=== PATIENT | female | born 1990 | race African-American/Black ===

== ENCOUNTER 2017-12-16 15:26 | Day surgery (SDC) | payer OTHER ==
--- NOTE | 2017-12-16 15:42 | PDOC ---
Rapid Medical Evaluation Time Seen by Provider: 12/16/17 15:36 Medical Evaluation: 12/16/17 15:37 Passed out yesterday on her way home while walking. Does not remember passing out. Does not thinks she hit her head. Also with RLQ pain for one week. Just came from PCP. Exam: ambulatory, no acute distress, TTP RLQ. Abd otherwise soft non distended with no guarding or rebound Orders: labs, Iv insert Pt. to be evaluated in the back.
--- NOTE | 2017-12-16 16:12 | PDOC ---
History of Present Illness - General Chief Complaint: Syncope/Near Syncope Stated Complaint: EMPLOYEE, SYNCOPE, ABD PAIN Time Seen by Provider: 12/16/17 15:36 History Source: Patient Exam Limitations: No Limitations - History of Present Illness Initial Comments: 12/16/17 16:14 Best Contact: PCP: Dr. Walls Pmhx:N/A Pshx:N/A Allergies: NKDA FH: Father/49 years old: Hypertension, mother/56 years old: Healthy Maternal grandmother/66 years old: Cervical and ovarian CA Paternal grandmother/ unknown age: Cervical cancer Social Hx: Ciarettes/ Alcohol/ Drugs/ LMP:11/25/2017 27-year-old female presents to the emergency department stating at approximately midnight last evening, she was walking home when she had a near syncopal episode. Patient states it only occur for a couple of seconds but woke up without confusion. Patient denies headache, dizziness, lightheadedness, facial pains, rhinorrhea, nasal congestion, earaches, neck pain/stiffness, back pains, chest pain, shortness of breath, flank pains, urinary symptoms. Patient is also complaining of right lower quadrant abdominal 2/10 dull nonradiating intermittent discomfort without nausea/vomiting, fever/chills, flank pains or urinary symptoms x 7-8 days. Patient was seen by her PMD approximately one hour prior to coming to the emergency department. Patient was sent to the ER by her PMD to rule out appendicitis. Patient's PMD attributes near syncope last evening from dehydration. Patient states she has not drank any fluids or had much to eat yesterday. Pt last ate at 12 midnight last evening Past History - Past Medical History Allergies/Adverse Reactions: Allergies Allergy/AdvReac Type Severity Reaction Status Date / Time No Known Allergies Allergy Verified 12/16/17 15:37 Home Medications: Ambulatory Orders NK [No Known Home Medication] 12/16/17 COPD: No - Suicide/Smoking/Psychosocial Hx Smoking History: Never smoked Have you smoked in the past 12 months: No Information on smoking cessation initiated: No Hx Alcohol Use: No Drug/Substance Use Hx: No Substance Use Type: None Review of Systems - Review of Systems Able to Perform ROS?: Yes Comments:: 12/16/17 16:16 CONSTITUTIONAL: Absent: fever, chills, diaphoresis, generalized weakness, malaise, loss of appetite HEENT: Absent: rhinorrhea, nasal congestion, throat pain, throat swelling, difficulty swallowing, mouth swelling, ear pain, eye pain, visual Changes CARDIOVASCULAR: Absent: chest pain, loss of consciousness, palpitations, irregular heart rate, peripheral edema RESPIRATORY: Absent: cough, shortness of breath, dyspnea with exertion, orthopnea, wheezing, stridor, hemoptysis GASTROINTESTINAL: +RLQ pain Absent: abdominal distension, nausea, vomiting, diarrhea, constipation, melena, hematochezia GENITOURINARY: Absent: dysuria, frequency, urgency, hesitancy, hematuria, flank pain, genital pain MUSCULOSKELETAL: Absent: myalgia, arthralgia, joint swelling SKIN: Absent: rash, itching, pallor HEMATOLOGIC/IMMUNOLOGIC: Absent: easy bleeding, easy bruising, lymphadenopathy, frequent infections ENDOCRINE: Absent: unexplained weight gain, unexplained weight loss, heat intolerance, cold intolerance NEUROLOGIC: +Near syncope last evening Absent: headache, focal weakness or paresthesias, dizziness, unsteady gait, seizure, mental status changes, bladder or bowel incontinence PSYCHIATRIC: Absent: anxiety, depression, suicidal or homicidal ideation, hallucinations. Is the patient limited Mexican proficient: No *Physical Exam - Vital Signs Last Vital Signs Temp Pulse Resp BP Pulse Ox 98.2 F 85 18 118/97 100 12/16/17 15:38 12/16/17 15:38 12/16/17 15:38 12/16/17 15:38 12/16/17 15:38 - Physical Exam Comments: 12/16/17 16:20 GENERAL: Well developed, well nourished. Awake and alert. No acute distress. HEENT: Normocephalic, atraumatic. PERRLA, EOMI. No conjunctival pallor. Sclera are non- icteric. Moist mucous membranes. Oropharynx is clear. NECK: Supple. Full ROM. No JVD. Carotid pulses 2+ and symmetric, without bruits. No thyromegaly. No lymphadenopathy. CARDIOVASCULAR: Regular rate and rhythm. No murmurs, rubs, or gallops. Distal pulses are 2+ and symmetric. PULMONARY: No evidence of respiratory distress. Lungs clear to auscultation bilaterally. No wheezing, rales or rhonchi. ABDOMINAL: +RLQ pain on deep palp Soft. Non-distended. No rebound or guarding. No organomegaly. Normoactive bowel sounds. MUSCULOSKELETAL Normal range of motion at all joints. No bony deformities or tenderness. No CVA tenderness. EXTREMITIES: No cyanosis. No clubbing. No edema. No calf tenderness. SKIN: Warm and dry. Normal capillary refill. No rashes. No jaundice. NEUROLOGICAL: Alert, awake, appropriate. Cranial nerves 2-12 intact. No deficits to light touch and temperature in face, upper extremities and lower extremities. No motor deficits in the in face, upper extremities and lower extremities. Normoreflexic in the upper and lower extremities. Normal speech. Toes are down- going bilaterally. Gait is normal without ataxia. PSYCHIATRIC: Cooperative. Good eye contact. Appropriate mood and affect. Moderate Sedation - Procedure Monitoring Vital Signs: Vital Signs Temp Pulse Resp BP Pulse Ox 98.2 F 85 18 118/97 100 12/16/17 15:38 12/16/17 15:38 12/16/17 15:38 12/16/17 15:38 12/16/17 15:38 Heart Score/ECG Review - History History: Slightly suspicious - Electrocardiogram EKG: Normal - Age Age: >/= 65 - Risk Factors Based on the list above the patient has:: No risk factors known ED Treatment Course - LABORATORY CBC & Chemistry Diagram: 12/16/17 16:03 12/16/17 16:03 - RADIOLOGY Radiograph Interpretation: 12/16/17 16:20 CT abd/pelvis with po/iv contrast: The appendix demonstrates slight concentric wall thickening along its length which could be on the basis of chronic or subacute appendicitis. *DC/Admit/Observation/Transfer Diagnosis at time of Disposition: Appendicitis Qualifiers: Appendicitis type: unspecified Qualified Code(s): K37 - Unspecified appendicitis - Discharge Dispostion Condition at time of disposition: Stable Decision to Admit order: Yes - Referrals Referrals: Awilda Alegria MD [Primary Care Provider] - Aleksander Carr MD [Staff Physician] - - Patient Instructions Printed Discharge Instructions: DI for Appendicitis -- Adult - Post Discharge Activity Progress Note - Progress Note Progress Note: 1952hrs: Called [facility]/surgery elevator constructor supervisor (Dr. Carr [phone])
[2017-12-16 16:16] VITALS: BMI 31.2
[2017-12-16 16:36] LABS: BASO % 0.3 % (0-2.0); EOS % 1.9 % (0-4.5); HEMATOCRIT 38.8 % (32.4-45.2); HEMOGLOBIN 12.6 GM/dL (10.7-15.3); LYMPH % 30.2 % (8-40); MCH 26.8 pg (25.7-33.7); MCHC 32.3 g/dl (32.0-36.0); MEAN PLT VOLUME 8.6 fl (7.5-11.1); NEUT % 58.6 % (42.8-82.8); PLATELET COUNT 296 K/MM3 (134-434); RBC 4.68 M/mm3 (3.60-5.2); RDW 14.3 % (11.6-15.6); WHITE BLOOD COUNT 8.4 K/mm3 (4.0-10.0)
[2017-12-16 16:45] LABS: INR 1.16 (0.82-1.09); PROTHROMBIN TIME (PATIENT) 13.1 SEC (9.7-13.0)
[2017-12-16 16:56] LABS: ALBUMIN 3.9 g/dl (3.4-5.0); ALK PHOS 46 U/L (45-117); ANION GAP 7 (8-16); BILIRUBIN,TOTAL 0.3 mg/dL (0.2-1.0); BLOOD UREA NITROGEN 13 mg/dL (7-18); CALCIUM 8.8 mg/dL (8.5-10.1); CHLORIDE 105 mmol/L (98-107); CO2 28 mmol/L (21-32); CREATININE 0.9 mg/dL (0.55-1.02); GLUCOSE,RANDOM 91 mg/dL (74-106); POTASSIUM 4.1 mmol/L (3.5-5.1); SGOT/AST 22 U/L (15-37); SGPT/ALT 22 U/L (12-78); SODIUM 140 mmol/L (136-145); TOT PROT 7.7 g/dl (6.4-8.2)
[2017-12-16 16:57] LABS: URINE APPEARANCE CLOUDY; URINE BILIRUBIN NEGATIVE (<2.0 mg/dL); URINE BLOOD NEGATIVE (NEGATIVE); URINE COLOR YELLOW; URINE GLUCOSE (UA) NEGATIVE (NEGATIVE); URINE KETONE NEGATIVE (NEGATIVE); URINE NITRITE NEGATIVE (NEGATIVE); URINE PROTEIN NEGATIVE (NEGATIVE); URINE UROBILINOGEN NEGATIVE mg/dL (0.2-1.0)
[2017-12-16 17:02] LABS: HCG,QUALITATIVE URINE NEGATIVE
[2017-12-16 17:07] LABS: URINE LEUK ESTERASE 3+ (NEGATIVE)
[2017-12-16 17:10] LABS: EPI CELLS MODERATE /HPF (FEW); URINE MUCUS RARE
--- NOTE | 2017-12-16 21:15 | CONSULT ---
Consult Consult Specialty:: general surgery - Alcohol/Substance Use Hx Alcohol Use: No - Smoking History Smoking history: Never smoked Have you smoked in the past 12 months: No Home Medications - Allergies Allergies/Adverse Reactions: Allergies Allergy/AdvReac Type Severity Reaction Status Date / Time No Known Allergies Allergy Verified 12/16/17 15:37 - Home Medications Home Medications: Ambulatory Orders NK [No Known Home Medication] 12/16/17 Physical Exam Vital Signs: Vital Signs Temperature 98.2 F 12/16/17 15:38 Pulse Rate 85 12/16/17 15:38 Respiratory Rate 18 12/16/17 15:38 Blood Pressure 118/97 12/16/17 15:38 O2 Sat by Pulse Oximetry (%) 100 12/16/17 15:38 Labs: CBC, BMP 12/16/17 16:03 12/16/17 16:03
--- NOTE | 2017-12-16 22:35 | HP ---
Admitting History and Physical - Admission Chief Complaint: Abdominal Pain History of Present Illness: 27yo female no signifcant PMH sent from PMD to the emergency department stating at approximately midnight last evening, she was walking home when she had a near syncopal episode. Patient states it only occur for a couple of seconds but woke up without confusion. She also reported right lower quadrant abdominal 2/10 dull nonradiating intermittent discomfort without nausea/vomiting , fever/chills, flank pains or urinary symptoms one month worse over last week. Patient was seen by her PMD approximately one hour prior to coming to the emergency department. Patient was sent to the ER by her PMD to rule out appendicitis. NO previous abdominal surgery. Patient denies headache, dizziness , lightheadedness, facial pains, rhinorrhea, nasal congestion, earaches, neck pain/stiffness, back pains, chest pain, shortness of breath, flank pains, urinary symptoms. We were asked to assess. History Source: Patient, Medical Record Limitations to Obtaining History: No Limitations - Smoking History Smoking history: Never smoked Have you smoked in the past 12 months: No - Alcohol/Substance Use Hx Alcohol Use: No History of Substance Use: reports: None - Social History History of Recent Travel: No Home Medications - Allergies Allergies/Adverse Reactions: Allergies Allergy/AdvReac Type Severity Reaction Status Date / Time No Known Allergies Allergy Verified 12/16/17 15:37 - Home Medications Home Medications: Ambulatory Orders NK [No Known Home Medication] 12/16/17 Review of Systems - Review of Systems Constitutional: denies: Chills, Fever Eyes: denies: Blurred Vision, Recent Change in Vision HENT: denies: Difficult Swallowing, Throat Pain Neck: denies: Decreased ROM, Pain on Movement Cardiovascular: denies: Chest Pain, Palpitations Respiratory: denies: Cough, Snoring, SOB Gastrointestinal: reports: Abdominal Pain. denies: Constipation, Diarrhea Genitourinary: denies: Burning, Discharge Musculoskeletal: denies: Back Pain, Muscle Pain, Muscle Weakness Integumentary: denies: Lesions, Rash, Wound Neurological: denies: Confusion, Dizziness, Syncope, Tremors Endocrine: denies: Unexplained Weight Gain, Unexplained Weight Loss Hematology/Lymphatic: denies: Easily Bruised, Excessive Bleeding Psychiatric: denies: Altered Sleep Pattern, Anxiety, Depression Physical Examination Vital Signs: Vital Signs Temperature 98.2 F 05/22/18 15:38 Pulse Rate 85 12/16/17 15:38 Respiratory Rate 18 12/16/17 15:38 Blood Pressure 118/97 12/16/17 15:38 O2 Sat by Pulse Oximetry (%) 100 12/16/17 15:38 Vital Signs Period Temp Pulse Resp BP Sys/Sinclair Pulse Ox Last 24 Hr 98.2 F 85 18 118/97 100 Constitutional: Yes: Well Nourished, No Distress, Calm Eyes: Yes: Conjunctiva Clear, EOM Intact HENT: Yes: Atraumatic, Normocephalic Neck: Yes: Supple, Trachea Midline Cardiovascular: Yes: Regular Rate and Rhythm, S1, S2 Respiratory: Yes: Regular, CTA Bilaterally. No: Cough Gastrointestinal: Yes: Normal Bowel Sounds, Soft, Tenderness, Tenderness, Rebound (RLQ moderate). No: Distention, Hematemesis, Pulsatile Mass, Rectal Bleeding ...Rectal Exam: Yes: Sphincter Tone Normal. No: Hemorrhoids/External, Hemorrhoids/Internal, Mass Renal/: No: CVA Tenderness - Left, CVA Tenderness - Right Extremities: No: Cool, Cyanosis Edema: No Peripheral Pulses WNL: Yes Peripheral Pulses: Left Doralis Pedis: 2+, Right Dorsalis Pedis: 2+ Integumentary: No: Jaundice, Rash Neurological: Yes: Alert, Oriented Psychiatric: Yes: Alert, Oriented Labs: CBC, BMP 12/16/17 16:03 12/16/17 16:03 Imaging - Results Cat Scan: Report Reviewed, Image Reviewed (Concentric wall thickening, chronic appendictis) Problem List - Problems (1) Appendicitis Assessment/Plan: 27 yo female PMH no leucocytosis, tender with moderate rebound in RLQ (persited overnight, after analgesia and antibiotics), no fever, would consider this chronic appendicitis NPO and IVF hydration IV antibiotics Reviewed films with Radaiologist Discussed with patient risks, benefits and alternatives of laparoscopic possible open appendectomy, including but not limited to bleeding, infection, injury to adjacent structures, leak or injury, intraabdominal abscess, need for further procedures, ; alternatives include antibiotics, delayed or no surgery - risks of this include failure of nonoperative therapy, perforation, sepsis, recurrence, . Patient desires to proceed with operation - will take to OR for above. Informed consent signed for same. Code(s): K37 - UNSPECIFIED APPENDICITIS Qualifiers: Appendicitis type: unspecified Qualified Code(s): K37 - Unspecified appendicitis (2) Dehydration Code(s): E86.0 - DEHYDRATION (3) Syncope, near Code(s): R55 - SYNCOPE AND COLLAPSE (4) Abdominal pain in female patient Code(s): R10.9 - UNSPECIFIED ABDOMINAL PAIN
[2017-12-16] MEDS ORDERED: ONDANSETRON 4 MG/2 ML VIAL IVPUSH PRN (22:36)
[2017-12-16] MEDS ORDERED: morphine SULFATE 4 MG/ML VIAL IVPUSH PRN (22:36)
[2017-12-16] MEDS ORDERED: CEFOXITIN SODIUM 2 GM in DEXTROSE 5%-WATER - 100 ML IVPB ONE (22:58)
[2017-12-16] MEDS: LACTATED RINGERS SOLUTION 1,000 ML IV SCH (23:49)
[2017-12-17 06:40] LABS: HEMATOCRIT 36.5 % (32.4-45.2); HEMOGLOBIN 12.1 GM/dL (10.7-15.3); MCH 27.3 pg (25.7-33.7); MCHC 33.1 g/dl (32.0-36.0); MEAN CELL VOLUME 82.4 fl (80-96); MEAN PLT VOLUME 8.3 fl (7.5-11.1); PLATELET COUNT 262 K/MM3 (134-434); RBC 4.43 M/mm3 (3.60-5.2); WHITE BLOOD COUNT 6.3 K/mm3 (4.0-10.0)
[2017-12-17 07:28] LABS: CHLORIDE 106 mmol/L (98-107); POTASSIUM 4.2 mmol/L (3.5-5.1); SODIUM 139 mmol/L (136-145)
[2017-12-17 07:34] LABS: ALBUMIN 3.2 g/dl (3.4-5.0); ALK PHOS 38 U/L (45-117); ANION GAP 8 (8-16); BILIRUBIN,TOTAL 0.3 mg/dL (0.2-1.0); BLOOD UREA NITROGEN 9 mg/dL (7-18); CALCIUM 8.3 mg/dL (8.5-10.1); CO2 25 mmol/L (21-32); CREATININE 0.8 mg/dL (0.55-1.02); GLUCOSE,RANDOM 76 mg/dL (74-106); LIPASE 95 U/L (73-393); SGOT/AST 16 U/L (15-37); SGPT/ALT 19 U/L (12-78); TOT PROT 6.8 g/dl (6.4-8.2)
[2017-12-17] MEDS ORDERED: CEFOXITIN SODIUM 2 GM in DEXTROSE 5%-WATER - 100 ML IVPB ONE (08:00)
[2017-12-17] MEDS: LACTATED RINGERS SOLUTION 1,000 ML IV SCH (08:39)
[2017-12-17] MEDS ORDERED: PANTOPRAZOLE 40 MG TABLET (FP) PO SCH (10:00)
--- NOTE | 2017-12-17 14:23 | EKG ---
Test Reason : Blood Pressure : / mmHG Vent. Rate : 070 BPM Atrial Rate : 070 BPM P-R Int : 138 ms QRS Dur : 082 ms QT Int : 404 ms P-R-T Axes : 052 046 041 degrees QTc Int : 436 ms NORMAL SINUS RHYTHM WITH SINUS ARRHYTHMIA NORMAL ECG NO PREVIOUS ECGS AVAILABLE Confirmed by EVITA DYE, JOCY ([id number]) on 12/17/2017 2:22:38 PM Referred By: ST Confirmed By:JOCY JAMA MD
[2017-12-17] MEDS ORDERED: BUPIVACAINE HCL/PF 0.5% (5MG/ML) 10 ML VIAL ONE (15:05)
[2017-12-17] MEDS ORDERED: LIDOCAINE HCL/PF 2% SDV 5ML VIAL ONE (16:23)
[2017-12-17] MEDS ORDERED: PROPOFOL 20 ML ONE (16:24)
[2017-12-17] MEDS ORDERED: ROCURONIUM BROMIDE 50 MG/5 ML VIAL ONE (16:24)
[2017-12-17] MEDS ORDERED: MIDAZOLAM HCL 2 MG/2 ML SINGLE DOSE VIAL ONE (16:25)
[2017-12-17] MEDS ORDERED: fentaNYL CITRATE 250 MCG/5 ML VIAL ONE (16:38)
[2017-12-17] MEDS ORDERED: DEXAMETHASONE SOD PHOSPHATE 4 MG/1 ML VIAL ONE (16:43)
[2017-12-17] MEDS ORDERED: ONDANSETRON 4 MG/2 ML VIAL ONE ×2 (16:43→17:20)
[2017-12-17] MEDS ORDERED: GLYCOPYRROLATE 0.2 MG/1 ML VIAL ONE (17:20)
[2017-12-17] MEDS ORDERED: NEOSTIGMINE METHYLSULFATE 0.5 MG/ML - 10 ML MDV ONE (17:20)
[2017-12-17] MEDS ORDERED: BUPIVACAINE HCL/PF (5 MG/ML) 30 ML VIAL IJ ONE (17:29)
--- NOTE | 2017-12-17 17:51 | OP ---
Operative Note - Note: Operative Date: 12/17/17 Pre-Operative Diagnosis: Chronic Appendicitis Operation: Laparoscopic Appendectomy Findings: enlarged appendix, normal adnexa bilaterally. Post-Operative Diagnosis: Same as Pre-op Surgeon: Aleksander Carr Anesthesiologist/STATIONARY ENGINEER APPRENTICE: Yazmin Woody Anesthesia: General, Local (0.5% Marcaine 20ml) Specimens Removed: appendix Estimated Blood Loss (mls): 2 Drains, Volume Out (mls): 150 (blackburn (removed)) Fluid Volume Replaced (mls): 1,000 (crystalloid ) Operative Report Dictated: Yes
[2017-12-17] MEDS ORDERED: ONDANSETRON 4 MG/2 ML VIAL IVPUSH PRN ×2 (17:52→18:15)
[2017-12-17] MEDS ORDERED: LACTATED RINGERS SOLUTION 1,000 ML IV SCH (18:00)
--- NOTE | 2017-12-17 18:07 | DS ---
Physical Examination Vital Signs: Vital Signs Temperature 99.0 F 12/17/17 14:30 Pulse Rate 18 L 12/17/17 14:30 Respiratory Rate 20 12/17/17 14:30 Blood Pressure 108/45 12/17/17 14:30 O2 Sat by Pulse Oximetry (%) 99 12/16/17 21:10 Vital Signs Period Temp Pulse Resp BP Sys/Sinclair Pulse Ox Last 24 Hr 98.7 F-99.0 F 14-82 18-102 102-108/45-49 99 Constitutional: Yes: Well Nourished, No Distress, Calm Eyes: Yes: Conjunctiva Clear, EOM Intact HENT: Yes: Atraumatic, Normocephalic Neck: Yes: Supple, Trachea Midline Cardiovascular: Yes: Regular Rate and Rhythm, S1, S2 Respiratory: Yes: Regular, CTA Bilaterally Gastrointestinal: Yes: Normal Bowel Sounds, Soft, Tenderness (incisional) ...Rectal Exam: Yes: Deferred Renal/: No: CVA Tenderness - Left, CVA Tenderness - Right Musculoskeletal: No: Muscle Pain, Muscle Weakness Extremities: No: Cool, Cyanosis Edema: No Peripheral Pulses WNL: Yes Peripheral Pulses: Left Doralis Pedis: 2+, Right Dorsalis Pedis: 2+ Wound/Incision: Yes: Clean/Dry, Well Approximated, Dressing Dry and Intact Neurological: Yes: Alert, Oriented Psychiatric: Yes: Alert, Oriented Labs: CBC, BMP 12/17/17 05:00 12/17/17 06:00 Discharge Summary Reason For Visit: APPENDICITIS Current Active Problems Abdominal pain in female patient (Acute) Appendicitis (Acute) Dehydration (Acute) Syncope, near (Acute) Procedures: Principal: Laparaoscopic Appendectomy Hospital Course: Admitted from the ED with RLQ pain confirmed enlarged appendix on CT scan. Taken for an uneventful Laparoscopic appendectomy. Stable for discharge home pos operatively. Condition: Improved - Instructions Diet, Activity, Other Instructions: Postoperative instructions: You had a laparoscopic appendectomy on 12/17/[address] Aleksander Carr of [facility]. Activity: Resume your usual activities gradually, but no heavy exertion or lifting more than 10-15 pounds for 1 month. Remove dressings 48 hours after surgery; sticky tapes underneath will fall off by themselves. You may shower daily starting then, just pat the incision areas dry. Eat lightly at first, but advance to your usual diet as tolerated. Pain: For pain, you may use and alternate Tylenol (acetaminophen) and/or ibuprofen every 6 hours each as needed; this means that you can take one OR the other at 3-hour intervals. If you are prescribed a Tylenol/narcotic combination for severe pain, use it instead of plain Tylenol as needed and switch back when your pain starts decreasing. Do not take more than 4000mg of acetaminophen in a day. Take medications as prescribed or indicated on the labeling. Follow-up: Call Dr. Carr' office at [phone] to make your postop appointment (Friday ~2 weeks after surgery). Clinic is held in the Diagnostic [facility] on the first floor of [facility]. Call the office if you have: * increasing pain not responsive to pain medication * fever of 101F or higher * vomiting * unusual or increasing bleeding or drainage from wounds * increasing redness or swelling at wound sites * inability to urinate Also, see your primary medical doctor within 1-2 weeks. Referrals: Aleksander Carr MD [Staff Physician] - Awilda Alegria MD [Primary Care Provider] - Disposition: HOME - Home Medications Comprehensive Discharge Medication List: Ambulatory Orders NK [No Known Home Medication] 12/16/17
[2017-12-17] MEDS ORDERED: morphine CARPU-JECT 2 MG/1 ML DISP.SYRIN IVPUSH PRN (18:15)
[2017-12-17] MEDS: morphine SULFATE 4 MG/ML VIAL IVPUSH PRN (23:07)
--- NOTE | 2017-12-18 08:28 | OP ---
DATE OF OPERATION: 12/17/2017 ATTENDING SURGEON: Aleksander Carr MD MEDICAL CENTER REPRESENTATIVE: No one. ANESTHESIOLOGIST: Yazmin Woody MD PREOPERATIVE DIAGNOSIS: Chronic appendicitis. POSTOPERATIVE DIAGNOSIS: Chronic appendicitis. PROCEDURE: Laparoscopic appendectomy. ESTIMATED BLOOD LOSS: 2 mL. INTRAVENOUS FLUID GIVEN: Crystalloid, 1000 mL. Richter, which was removed at the end of the case, drained 150 mL of urine. SPECIMEN: Appendix. BRIEF FINDINGS: Patient had an enlarged appendix by CT scan. On inspection, there were normal adnexa bilaterally. Fallopian tubes and ovaries both identified. . INDICATIONS: Patient is a 27-year-old female with a history of 1 month of abdominal pain, worse over the last week. It was focused to the right lower quadrant. She had a normal white count. CT has showed a concentrically dilated appendix consistent with chronic appendicitis or acute on chronic. She was counseled regarding the need for appendectomy. She signed informed consent after being explained the risks, benefits, and alternatives to surgical procedure proposed, and she was taken to the procedure. DESCRIPTION OF PROCEDURE: The patient was brought to the operating room, placed in supine position on the operating table with left arm tucked and the right arm extended at 90 degrees perpendicular to the bodys axis. The anterior abdominal wall was prepped and draped in standard surgical fashion. Patient had bilateral SCDs on the lower extremities. She was induced with general anesthesia and endotracheally intubated by Anesthesia without event. We proceeded first with a formal time- out identifying the operative site and procedure. With all parties in agreement, we proceeded then with a sterile prep and drape of the site, and then we proceeded first with an infraumbilical midline Ronald approach for insertion of the Ronald trocar. This was incised with a 15-blade scalpel. It was deepened and widened through the subcutaneous tissue. Care was taken then to dissect down towards the midline fascia. When identified, it was grasped with Kochers and then blunt entry was made into the umbilicus. With the space cleared below the umbilicus, a 12-mm Ronald port was installed into the abdomen after a figure-of- eight 0 Vicryl was laid in a cross and figure-of-8 fashion to ablate the space postoperatively. We proceeded then with instillation of additional 5-mm trocars, one at the suprapubic position and one at the left lower quadrant. After instillation of the trocars under direct visualization, 5-mm trocars under direct visualization, we proceeded then with placement of the patient into Trendelenburg, and exploration of right lower quadrant. The vail of treves was identified and retracted the cecum and the appendix was identified. Its base was controlled, and then a plane was developed between the mesoappendix and the appendix base at the termination of the tinea coli. A 45-mm Endo KATHARINA stapler was then used to transect the base of the appendix from the umbilical port after resighting the camera in the left lower quadrant. In similar fashion a white load, a vascular load, was used to transect the remainder of the mesoappendix. The mesoappendix, once transected, was then retrieved with the appendix from the umbilical port using a 10-mm EndoCatch bag. The trocar sites were identified. The operative site was inspected. The right and left adnexa were visualized. The right ovary appeared healthy, and the fallopian tubes were also identified. The uterus was normal sized. There was no additional inflammatory finding in the area. Patient then had the appendix removed from the abdomen and sent for pathologic diagnosis. We then proceeded with removal of the trocars under direct visualization, and then relief of the pneumoperitoneum. The pneumoperitoneum, once relieved, the umbilical port was tied using a figure-of-8 with 0 vicryl to ablate the space completely. Skin was cleaned, and the skin was closed using 4-0 Vicryl in interrupted fashion, in subcuticular fashion at the umbilicus and then interrupted fashion at the trocar sites. The patient was awoken from general anesthesia having tolerated the procedure well. She was extubated in the operating room. She returned to recovery in stable condition. The counts were correct postoperatively. MD MICHAEL Rizzo/[id number] MTDD
[2017-12-18] MEDS ORDERED: PANTOPRAZOLE 40 MG TABLET (FP) PO SCH (10:00)
[2017-12-18] MEDS: morphine SULFATE 4 MG/ML VIAL IVPUSH PRN (10:11)
[2017-12-18] MEDS ORDERED: IBUPROFEN 600 MG TABLET (FP) PO PRN (10:12)
[2017-12-18] MEDS ORDERED: ACETAMINOPHEN 325 MG TABLET (FP) PO PRN (10:12)
--- NOTE | 2017-12-18 13:06 | PN ---
Progress Note, Physician Chief Complaint: day #1 s/p lap AP - Current Medication List Current Medications: Active Medications Acetaminophen (Tylenol -) 650 mg PO Q6H PRN PRN Reason: PAIN LEVEL 1-5 Ibuprofen (Motrin -) 600 mg PO Q6H PRN PRN Reason: PAIN LEVEL 1-5 Morphine Sulfate (Morphine Sulfate) 2 mg IVPUSH Q4H PRN PRN Reason: PAIN LEVEL 7 - 10 Last Admin: 12/18/17 10:11 Dose: 2 mg Ondansetron HCl (Zofran Injection) 4 mg IVPUSH Q6H PRN PRN Reason: NAUSEA Pantoprazole Sodium (Protonix -) 40 mg PO DAILY SHIRLEY Last Admin: 12/18/17 09:57 Dose: 40 mg - Objective Vital Signs: Vital Signs Temperature 98.6 F 12/18/17 07:43 Pulse Rate 791 H 12/18/17 07:43 Respiratory Rate 18 12/18/17 07:49 Blood Pressure 104/62 12/18/17 07:43 O2 Sat by Pulse Oximetry (%) 100 12/18/17 07:49 Labs: CBC, BMP 12/17/17 05:00 12/17/17 06:00 INR, PTT INR 1.16 (0.82-1.09) H 12/16/17 16:03 Assessment/Plan Pt doing well - no anesthetic issues. For discharge today
[2017-12-18 15:11] VITALS: BP 111/74; PULSE 81; TEMP 97.4
--- NOTE | 2017-12-23 17:00 | PATH ---
Surgical Pathology Report Patient Name: NICHOLE BLUM [facility]. Rec. #: [id number] /Age/Gender: 1990 (Age: 27) / F Account: <[id number]> Location: EMERGENCY ROOM Taken: 12/17/2017 Received: 12/18/2017 Reported: 12/23/2017 Physicians: Aleksander Carr M.D. Specimen(s) Received APPENDIX Clinical History Appendicitis Final Diagnosis APPENDIX: APPENDIX SHOWING FOCAL NEUTROPHILIC INFILTRATE IN THE MUCOSAL EPITHELIUM AND ACUTE INFLAMMATORY EXUDATE IN THE LUMEN, CONSISTENT WITH EARLY ACUTE APPENDICITIS. Electronically Signed Don Shukla M.D. Gross Description Received in formalin, labeled "appendix," is a 5 cm. in length vermiform appendix with a stapled margin of resection and moderate attached fat. The serosa is enamorado and smooth. Sectioning reveals a focally dilated lumen containing brown fecal material. The wall of the appendix averages 0.1 cm. in thickness. Roof Truss Machine Tender sections are submitted in one cassette. 12/19/2017 [facility]12/19/2017
--- NOTE | 2017-12-30 13:28 | EKG ---
Test Reason : Blood Pressure : / mmHG Vent. Rate : 065 BPM Atrial Rate : 065 BPM P-R Int : 132 ms QRS Dur : 082 ms QT Int : 420 ms P-R-T Axes : 055 025 033 degrees QTc Int : 436 ms NORMAL SINUS RHYTHM WITH SINUS ARRHYTHMIA NORMAL ECG WHEN COMPARED WITH ECG OF 16-DEC-2017 18:00, NO SIGNIFICANT CHANGE WAS FOUND Confirmed by MD HAQ PENG ([id number]) on 12/30/2017 1:27:38 PM Referred By: Confirmed By:ALDO HAQ MD
== END 2017-12-18 16:29 | disposition home or self-care (01) ==
LOC: JERFT 15:26 → JER 15:26 → JASUSAT 20:03 → UNDOADMIN 21:10 → JERBED 21:10 → J4W 12-17 20:07 → JASUSAT 12-18 16:29
PROC: 0DTJ4ZZ Resection of Appendix, Percutaneous Endoscopic Approach (ICD-10-PCS; principal; 2017-12-16)
DX: K36 Other appendicitis (principal)
CPT/HCPCS: 36415; 74177-TC; 80053; 81003; 81015; 83690; 84703; 85025; 85027; 85610; 86850; 86900; 86901; 87086; 93005; 93010; 94760; 99283-25

== ENCOUNTER 2022-12-16 14:00 | Emergency (ER) | payer OTHER ==
[2022-12-16 14:11] VITALS: BP 128/75; PULSE 70; RESP 18; TEMP 97.1; BMI 30.9
[2022-12-16] MEDS ORDERED: RABIES VACCINE (PCEC)/PF 2.5 UNIT/VIAL IM ONE ×2 (15:03→15:16)
== END 2022-12-16 15:49 | disposition home or self-care (01) ==
LOC: JERFT 14:00
PROC: 3E0234Z Introduction of Serum, Toxoid and Vaccine into Muscle, Percutaneous Approach (ICD-10-PCS; principal; 2022-12-16)
DX: S51.852A Open bite of left forearm, initial encounter (principal); W54.0XXA Bitten by dog, initial encounter
CPT/HCPCS: 90675; 99284-25

== ENCOUNTER 2022-12-19 11:14 | Emergency (ER) | payer OTHER ==
[2022-12-19 11:38] VITALS: BP 106/56; PULSE 63; RESP 16; TEMP 98.3; BMI 30.9
[2022-12-19] MEDS ORDERED: RABIES VACCINE (PCEC)/PF 2.5 UNIT/VIAL IM ONE ×2 (12:10→12:12)
== END 2022-12-19 12:29 | disposition home or self-care (01) ==
LOC: JERFT 11:14
PROC: 3E0234Z Introduction of Serum, Toxoid and Vaccine into Muscle, Percutaneous Approach (ICD-10-PCS; principal; 2022-12-19)
DX: Z29.14 Encounter for prophylactic rabies immune globulin (principal); S51.852D Open bite of left forearm, subsequent encounter; W54.0XXD Bitten by dog, subsequent encounter
CPT/HCPCS: 90675; 99282-25

== ENCOUNTER 2022-12-23 09:46 | Emergency (ER) | payer OTHER ==
[2022-12-23 09:51] VITALS: BP 94/54; PULSE 63; RESP 20; TEMP 98.2; BMI 31.0
[2022-12-23] MEDS ORDERED: RABIES VACCINE (PCEC)/PF 2.5 UNIT/VIAL IM ONE ×2 (10:05→10:09)
== END 2022-12-23 10:22 | disposition home or self-care (01) ==
LOC: JERFT 09:46
PROC: 3E0234Z Introduction of Serum, Toxoid and Vaccine into Muscle, Percutaneous Approach (ICD-10-PCS; principal; 2022-12-23)
DX: Z29.14 Encounter for prophylactic rabies immune globulin (principal)
CPT/HCPCS: 90675; 99281-25

== ENCOUNTER 2022-12-30 13:37 | Emergency (ER) | payer OTHER ==
[2022-12-30 13:52] VITALS: BP 107/61; PULSE 63; RESP 18; TEMP 98.5; BMI 30.9
[2022-12-30] MEDS ORDERED: RABIES VACCINE (PCEC)/PF 2.5 UNIT/VIAL IM ONE ×2 (14:55→15:00)
== END 2022-12-30 15:12 | disposition home or self-care (01) ==
LOC: JERFT 13:37
PROC: 3E0234Z Introduction of Serum, Toxoid and Vaccine into Muscle, Percutaneous Approach (ICD-10-PCS; principal; 2022-12-30)
DX: Z29.14 Encounter for prophylactic rabies immune globulin (principal)
CPT/HCPCS: 90675; 99282-25